=== PATIENT | male | born 1945 | race Caucasian/White ===

== ENCOUNTER 2017-09-02 11:24 | Observation (INO) | payer MEDICARE, OTHER ==
[~2017-09-02] VITALS: Ht 188 cm; Wt 81.1 kg
[2017-09-02] VITALS (16 sets, daily range): BP systolic 106–159; BP diastolic 63–84; PULSE 46–88; RESP 16; TEMP 97.6–98.3; O2SAT 94–100
[~2017-09-02 11:24] MED LIST: RED600TA PO; ST J81CH PO; TAB-TAB PO; VITA250L PO
[2017-09-02] MEDS ORDERED: MULTCAP3 PO (11:30)
[2017-09-02] MEDS ORDERED: VITA250T5 PO (11:30)
[2017-09-02] MEDS ORDERED: ASPI81TA11 PO (11:30)
[2017-09-02] MEDS ORDERED: ASPIRIN 81 MG CHEW TAB PO ONE (11:45)
[2017-09-02] MEDS ORDERED: SODIUM CHLORIDE 0.9% FLUSH 10 ML FLUSH IVF PRN (11:45)
[2017-09-02 11:51] LABS: AUTOMATED NEUTROPHIL # 4.9 TH/MM3 (1.8-7.7); BASOPHIL # 0.1 TH/MM3 (0-0.2); BASOPHIL % 0.9 % (0.0-2.0); EOSINOPHIL # 0.2 TH/MM3 (0-0.4); EOSINOPHIL % 3.3 % (0.0-4.0); HEMATOCRIT 42.2 % (39.0-51.0); HEMO FLAGS DIFF FINAL; LYMPH % 17.7 % (9.0-44.0); LYMPHOCYTE # 1.3 TH/MM3 (1.0-4.8); MEAN CELL VOLUME 92.8 FL (80.0-100.0); MEAN CORPUSCULAR HEMOGLOBIN 30.3 PG (27.0-34.0); MEAN CORPUSCULAR HGB CONC 32.7 % (32.0-36.0); MONO % 9.5 % (0.0-8.0); NEUT % 68.6 % (16.0-70.0); PLATELET COUNT 195 TH/MM3 (150-450); RED BLOOD COUNT 4.55 MIL/MM3 (4.50-5.90); RED CELL DISTRIBUTION WIDTH 14.2 % (11.6-17.2); WHITE BLOOD COUNT 7.2 TH/MM3 (4.0-11.0)
--- NOTE | 2017-09-02 11:53 | PD ---
HPI Chief Complaint: Chest Pain Time Seen by Provider: 11:31 Travel History International Travel<30 days: No Contact w/Intl Traveler<30days: No Traveled to known affect area: No History of Present Illness HPI Patient is a 72-year-old male with a history of coronary disease and a 70% lesion that was not intervened on by catheter in 2013, followed by Dr. Yao, presents emergency Department with chest pain in the middle of his chest radiation to his left shoulder coming with shortness of breath nausea and diaphoresis. Symptoms started approximately 2 hours prior to presentation and are currently resolved. Patient states she's not had a stress test or catheterization since 2013. He states his symptoms were severe better now gradually resolving. Denies any fever denies any cough denies any abdominal pain or diarrhea. Symptoms are mild currently, nearly resolved, have been lessening. Describes as heavy. PFSH Past Medical History AAA: Yes (09/2013) Arthritis: Yes (LEFT HIP) Cancer: Yes (PROSTATE 2011 48 RADIATION [place]) Cardiovascular Problems: Yes High Cholesterol: Yes Chest Pain: Yes Coronary Artery Disease: Yes Endocrine: No Genitourinary: No Immune Disorder: No Musculoskeletal: Yes Neurologic: No Psychiatric: No Reproductive: No Respiratory: No Immunizations Current: Yes Myocardial Infarction: Yes Radiation Therapy: Yes Influenza Vaccination: No Past Surgical History Cardiac Surgery: Yes (STENT ABDOMINAL AORTA) Coronary Stent: Yes (X 2) Oral Surgery: Yes (TONSILLECTOMY) Other Surgery: Yes Social History Alcohol Use: Yes (RARE) Tobacco Use: No (FORMER) Substance Use: No Allergies-Medications (Allergen,Severity, Reaction): Coded Allergies: No Known Allergies (Unverified , 09/02/17) Reported Meds & Prescriptions Reported Meds & Active Scripts Active Reported Carvedilol 3.125 Mg Tab 3.125 Mg PO BID Lisinopril 2.5 Mg Tab 2.5 Mg PO HS Brilinta (Ticagrelor) 60 Mg Tab 60 Mg PO BID Vitamin B-12 (Cyanocobalamin) 250 Mcg Tab 250 Mcg PO DAILY Multivitamins (Multiple Vitamin) 1 Cap Cap 1 Cap PO DAILY Aspirin EC (Aspirin) 81 Mg Tabdr 81 Mg PO DAILY Review of Systems Except as stated in HPI: all other systems reviewed are Neg Physical Exam Narrative GENERAL: [Well-developed well-nourished appears mildly short of breath. SKIN: Focused skin assessment warm/dry. HEAD: Atraumatic. Normocephalic. EYES: Pupils equal and round. No scleral icterus. No injection or drainage. ENT: No nasal bleeding or discharge. Mucous membranes pink and moist. NECK: Trachea midline. No JVD. CARDIOVASCULAR: Regular rate and rhythm. No murmur appreciated. No MG R, 2+ bilateral equal pulses in all 4 extremity's. RESPIRATORY: No accessory muscle use. Clear to auscultation. Breath sounds equal bilaterally. GASTROINTESTINAL: Abdomen soft, non-tender, nondistended. Hepatic and splenic margins not palpable. MUSCULOSKELETAL: No obvious deformities. No clubbing. No cyanosis. No edema. NEUROLOGICAL: Awake and alert. No obvious cranial nerve deficits. Motor grossly within normal limits. Normal speech. PSYCHIATRIC: Appropriate mood and affect; insight and judgment normal. Data Data Last Documented VS Vital Signs Date Time Temp Pulse Resp B/P (MAP) Pulse Ox O2 Delivery O2 Flow Rate FiO2 09/02/17 13:35 50 16 110/72 (85) 98 Nasal Cannula 2.00 09/02/17 11:30 98.3 Orders Orders Electrocardiogram (09/02/17 11:37) Ckmb (Isoenzyme) Profile (09/02/17 11:37) Complete Blood Count With Diff (09/02/17 11:37) Comprehensive Metabolic Panel (09/02/17 11:37) Magnesium (Mg) (09/02/17 11:37) Prothrombin Time / Inr (Pt) (09/02/17 11:37) Act Partial Throm Time (Ptt) (09/02/17 11:37) Troponin I (09/02/17 11:37) Chest, Single Ap (09/02/17 11:37) Ecg Monitoring (09/02/17 11:37) Iv Access Insert/Monitor (09/02/17 11:37) Oximetry (09/02/17 11:37) Oxygen Administration (09/02/17 11:37) Aspirin Chew (Aspirin Chew) (09/02/17 11:45) Sodium Chloride 0.9% Flush (Ns Flush) (09/02/17 11:45) Admit Order (Ed Use Only) (09/02/17 ) Consult Cardiology (09/02/17 ) Labs Laboratory Tests Test 09/02/17 11:30 White Blood Count 7.2 TH/MM3 Red Blood Count 4.55 MIL/MM3 Hemoglobin 13.8 GM/DL Hematocrit 42.2 % Mean Corpuscular Volume 92.8 FL Mean Corpuscular Hemoglobin 30.3 PG Mean Corpuscular Hemoglobin Concent 32.7 % Red Cell Distribution Width 14.2 % Platelet Count 195 TH/MM3 Mean Platelet Volume 9.5 FL Neutrophils (%) (Auto) 68.6 % Lymphocytes (%) (Auto) 17.7 % Monocytes (%) (Auto) 9.5 % Eosinophils (%) (Auto) 3.3 % Basophils (%) (Auto) 0.9 % Neutrophils # (Auto) 4.9 TH/MM3 Lymphocytes # (Auto) 1.3 TH/MM3 Monocytes # (Auto) 0.7 TH/MM3 Eosinophils # (Auto) 0.2 TH/MM3 Basophils # (Auto) 0.1 TH/MM3 CBC Comment DIFF FINAL Differential Comment Prothrombin Time 10.2 SEC Prothromb Time International Ratio 0.9 RATIO Activated Partial Thromboplast Time 26.6 SEC Blood Urea Nitrogen 23 MG/DL Creatinine 1.40 MG/DL Random Glucose 102 MG/DL Total Protein 7.3 GM/DL Albumin 3.8 GM/DL Calcium Level 9.1 MG/DL Magnesium Level 2.2 MG/DL Alkaline Phosphatase 72 U/L Aspartate Amino Transf (AST/SGOT) 18 U/L Alanine Aminotransferase (ALT/SGPT) 28 U/L Total Bilirubin 0.5 MG/DL Sodium Level 138 MEQ/L Potassium Level 4.1 MEQ/L Chloride Level 103 MEQ/L Carbon Dioxide Level 26.9 MEQ/L Anion Gap 8 MEQ/L Estimat Glomerular Filtration Rate 50 ML/MIN Total Creatine Kinase 51 U/L Troponin I LESS THAN 0.02 NG/ML [facility] Medical Decision Making Medical Screen Exam Complete: Yes Emergency Medical Condition: Yes Differential Diagnosis ACS, AMI, pneumonia, PE was considered but seems highly unlikely. Narrative Course Patient roomed emergency department, initial workup with EKG and troponin are negative. He is feeling better without intervention, has not had his aspirin yet this morning was given a dose. At this time I recommended patient come into the hospital on observation status for consideration of stress testing and he is agreeable. Patient discussed with Dr. Bocanegra requested discussed the patient with the cardiology team prior to admission. The patient was discussed with Dr. ya who is on-call for Dr. Najma ya suggested the patient should be transferred to the [facility] for his evaluation for consideration of possible stress testing versus cardiac catheterization given the history of the 70% lesion. This was conveyed to the patient and he is agreeable to this as well. Patient discussed again with Dr. Bocanegra who agrees to admit the patient. Diagnosis Primary Impression: Chest pain Qualified Codes: R07.9 - Chest pain, unspecified Admitting Information Admitting Physician Requests: Observation Condition: Stable Emanuel Arias MD Sep 02, 2017 11:52
[2017-09-02 11:59] LABS: CHLORIDE 103 MEQ/L (98-107); POTASSIUM 4.1 MEQ/L (3.5-5.1); SODIUM (NA) 138 MEQ/L (136-145)
[2017-09-02 12:03] LABS: ANION GAP 8 MEQ/L (5-15); BICARBONATE 26.9 MEQ/L (21.0-32.0); BLOOD UREA NITROGEN 23 MG/DL (7-18); MAGNESIUM 2.2 MG/DL (1.5-2.5)
[2017-09-02 12:04] LABS: APTT (PATIENT) 26.6 SEC (24.3-30.1); INTERNATIONAL NORMALIZED RATIO 0.9 RATIO; PROTHROMBIN TIME - PATIENT 10.2 SEC (9.8-11.6)
[2017-09-02 12:06] LABS: ALT (GPT) 28 U/L (12-78); AST (GOT) 18 U/L (15-37); GLOMERULAR FILTRATION RATE 50 ML/MIN (>89)
[2017-09-02 12:08] LABS: TOTAL BILIRUBIN ADULT 0.5 MG/DL (0.2-1.0)
[2017-09-02] MEDS ORDERED: TICA1TAB PO (12:10)
[2017-09-02 12:11] LABS: ALKALINE PHOSPHATASE 72 U/L (45-117)
[2017-09-02 12:14] LABS: CREATINE KINASE 51 U/L (39-308)
--- NOTE | 2017-09-02 12:26 | RADRPT ---
EXAM DATE/TIME: 09/02/2017 12:09 [place] COMPARISON: CHEST SINGLE AP, March 19, 2014, 22:21. INDICATIONS : Chest pain. MEDICAL HISTORY : Myocardial infarction. Arthritis. Hypercholesterolemia. CAD. Radiation therapy. Prostate CA. SURGICAL HISTORY : Tonsillectomy. Cardiac cath w/ stent placement. ENCOUNTER: Initial ACUITY: 1 day PAIN SCORE: 8/10 LOCATION: chest FINDINGS: A single view of the chest demonstrates the lungs to be symmetrically aerated without evidence of mas s, infiltrate or effusion. The cardiomediastinal contours are unremarkable. Osseous structures are intact. CONCLUSION: No acute disease. Jorge Ferris MD on September 02, 2017 at 12:23 Board Certified Radiologist. This report was verified electronically.
[2017-09-02] MEDS ORDERED: CARV3.12 PO (13:00)
[2017-09-02] MEDS ORDERED: LISI2.5T3 PO (13:00)
[2017-09-02] MEDS ORDERED: ONDANSETRON HCL 4 MG/2 ML VIAL IV PUSH PRN (15:15)
[2017-09-02] MEDS ORDERED: ACETAMINOPHEN 500 MG CPLT PO PRN (15:15)
[2017-09-02] MEDS ORDERED: MORPHINE SULFATE 4 MG/ML INJ IV PUSH PRN (15:15)
[2017-09-02] MEDS ORDERED: SODIUM CHLORIDE 0.9% FLUSH 10 ML FLUSH IV FLUSH PRN (15:15)
[2017-09-02] MEDS ORDERED: NITROGLYCERIN 0.4 MG SL 25 TABS/BTL SL PRN (15:15)
--- NOTE | 2017-09-02 15:21 | HHI.HP ---
[facility] Service [facility] Primary Care Physician Jaspreet Donovan M.D. Admission Diagnosis Acute Coronary Syndrome Diagnoses: (1) Unstable angina Diagnosis: Principal (2) Renal insufficiency Diagnosis: Principal (3) History of coronary artery stent placement Diagnosis: Principal Chief Complaint: chest pain Travel History International Travel<30 Days: No Contact w/Intl Traveler <30 Da: No Traveled to Known Affected Are: No History of Present Illness 72-year-old male with history of coronary artery disease with stents x 2, hyperlipidemia, AAA repair, and h/o prostate cancer presents with complaint of chest pain. The patient states that he started to have pain described as "heaviness" at 10:30 to 11 AM this morning across the middle of his chest. He states initially was a 7-8/10 and lasted for approximately half an hour then started to diminish at 11 AM and he said intermittently pain since. He states it decreased to 2/10 and now he is chest pain-free. He states he has been having chest pain in the same location for the past 2 weeks intermittently with some radiation to the back. Denies association with exertion. He states this morning he did have dizziness and diaphoresis. He states it felt similar to his [place] in 1997 although at that time he had nausea and vomiting which she did not have today. He has had some periodic mild shortness of breath. He denies any numbness or tingling in extremities and denies any pain to jaws/neck/arms. Denies any headache, lightheadedness, or visual changes. Denies any leg swelling. He denies any fevers or chills, recent cold symptoms, abdominal pain, diarrhea, constipation. Patient sees Dr. Yao. His last cardiac catheterization was in 2013. At that time he had 2 vessel disease with 60% occlusion of the LAD and 70% occlusion of the first obtuse marginal branch of the circumflex which was not amenable to stenting and patient was medically managed. Review of Systems Constitutional: COMPLAINS OF: Diaphoretic episodes, DENIES: Fever, Chills Eyes: DENIES: Blurred vision, Double Vision Ears, nose, mouth, throat: DENIES: Throat pain, Ear Pain, Running Nose Respiratory: COMPLAINS OF: Shortness of breath, DENIES: Cough Cardiovascular: COMPLAINS OF: Chest pain, DENIES: Lower Extremity Edema Gastrointestinal: DENIES: Abdominal pain, Constipation, Diarrhea, Nausea, Vomiting Genitourinary: DENIES: Hematuria, Dysuria Musculoskeletal: COMPLAINS OF: Back pain Integumentary: DENIES: Rash Neurologic: DENIES: Headache Past Family Social History Past Medical History Coronary artery disease, [place] 1997 AAA (with repair) followed by Dr. Conn Prostate cancer 2012 with 48 radiation treatments, no active cancer, followed by Dr. De Anda Mildly elevated cholesterol Denies history of hypertension Past Surgical History Coronary artery stents 2 in 1997 Abdominal aorta stent Tonsillectomy Reported Medications Reported Meds & Active Scripts Active Reported Carvedilol 3.125 Mg Tab 3.125 Mg PO BID Lisinopril 2.5 Mg Tab 2.5 Mg PO HS Brilinta (Ticagrelor) 60 Mg Tab 60 Mg PO BID Vitamin B-12 (Cyanocobalamin) 250 Mcg Tab 250 Mcg PO DAILY Multivitamins (Multiple Vitamin) 1 Cap Cap 1 Cap PO DAILY Aspirin EC (Aspirin) 81 Mg Tabdr 81 Mg PO DAILY Allergies: Coded Allergies: No Known Allergies (Unverified , 09/02/17) Family History Mother: Stroke, "heart problems". Father: of AAA at age 57 Social History Denies smoking cigarettes currently. Smoked from age [age], half pack per day. Occasional alcohol use (beer). No hard liquor. Denies illicit drug use. Physical Exam Vital Signs Vital Signs Date Time Temp Pulse Resp B/P (MAP) Pulse Ox O2 Delivery O2 Flow Rate FiO2 09/02/17 13:35 50 16 110/72 (85) 98 Nasal Cannula 2.00 09/02/17 12:35 55 16 119/79 (92) 97 Nasal Cannula 2.00 09/02/17 11:35 78 16 100 Nasal Cannula 2.00 09/02/17 11:30 16 100 Nasal Cannula 2.00 09/02/17 11:30 100 Nasal Cannula 2.00 09/02/17 11:30 98.3 88 16 144/84 (104) 100 Physical Exam GENERAL: This is a well-nourished, well-developed patient, in no apparent distress. SKIN: No rashes, ecchymoses or lesions. Warm and dry. HEAD: Atraumatic. Normocephalic. EYES: No scleral icterus. No injection or drainage. ENT: Tongue dry. NECK: Trachea midline. No lymphadenopathy. CHEST: No reproducible chest wall tenderness. CARDIOVASCULAR: Regular rate and rhythm without murmurs, gallops, or rubs. RESPIRATORY: Clear to auscultation. Breath sounds equal bilaterally. No wheezes , rales, or rhonchi. GASTROINTESTINAL: Abdomen soft, non-tender, nondistended. No guarding. MUSCULOSKELETAL: No lower extremity edema or calf pain bilaterally. NEUROLOGICAL: Awake and alert. Motor grossly within normal limits. Five out of 5 muscle strength in bilateral arms and legs. Normal speech. PSYCHIATRIC: Normal mood and affect. Laboratory Laboratory Tests Test 09/02/17 11:30 White Blood Count 7.2 Red Blood Count 4.55 Hemoglobin 13.8 Hematocrit 42.2 Mean Corpuscular Volume 92.8 Mean Corpuscular Hemoglobin 30.3 Mean Corpuscular Hemoglobin Concent 32.7 Red Cell Distribution Width 14.2 Platelet Count 195 Mean Platelet Volume 9.5 Neutrophils (%) (Auto) 68.6 Lymphocytes (%) (Auto) 17.7 Monocytes (%) (Auto) 9.5 Eosinophils (%) (Auto) 3.3 Basophils (%) (Auto) 0.9 Neutrophils # (Auto) 4.9 Lymphocytes # (Auto) 1.3 Monocytes # (Auto) 0.7 Eosinophils # (Auto) 0.2 Basophils # (Auto) 0.1 CBC Comment DIFF FINAL Differential Comment Prothrombin Time 10.2 Prothromb Time International Ratio 0.9 Activated Partial Thromboplast Time 26.6 Blood Urea Nitrogen 23 Creatinine 1.40 Random Glucose 102 Total Protein 7.3 Albumin 3.8 Calcium Level 9.1 Magnesium Level 2.2 Alkaline Phosphatase 72 Aspartate Amino Transf (AST/SGOT) 18 Alanine Aminotransferase (ALT/SGPT) 28 Total Bilirubin 0.5 Sodium Level 138 Potassium Level 4.1 Chloride Level 103 Carbon Dioxide Level 26.9 Anion Gap 8 Estimat Glomerular Filtration Rate 50 Total Creatine Kinase 51 Troponin I LESS THAN 0.02 Result Diagram: 09/02/17 1130 09/02/17 1130 Imaging Last Impressions Chest X-Ray 09/02/17 1137 Signed Impressions: Service Date/Time: Saturday, September 02, 2017 12:09 - CONCLUSION: No acute disease. Jorge Ferris MD Caprindonna VTE Risk Assessment Caprini VTE Risk Assessment: Mod/High Risk (score >= 2) Caprini Risk Assessment Model Point Value = 1 Point Value = 2 Point Value = 3 Point Value = 5 Age 41-60 Minor surgery BMI > 25 kg/m2 Swollen legs Varicose veins or History of unexplained or recurrent spontaneous Oral contraceptives or hormone replacement Sepsis (< 1 month) Serious lung disease, including pneumonia (< 1 month) Abnormal pulmonary function Acute myocardial infarction Congestive heart failure (< 1 month) History of inflammatory bowel disease Medical patient at bed rest Age 61-74 Arthroscopic surgery Major open surgery (> 45 min) Laparoscopic surgery (> 45 min) Malignancy Confined to bed (> 72 hours) Immobilizing plaster cast Central venous access Age >= 75 History of VTE Family history of VTE Factor V Leiden Prothrombin [id number] Lupus anticoagulant Anticardiolipin antibodies Elevated serum homocysteine Heparin-induced thrombocytopenia Other congenital or acquired thrombophilia Stroke (< 1 month) Elective arthroplasty Hip, pelvis, or leg fracture Acute spinal cord injury (< 1 month) Prophylaxis Regimen Total Risk Factor Score Risk Level Prophylaxis Regimen 0-1 Low Early ambulation 2 Moderate Order ONE of the following: *Sequential Compression Device (SCD) *Heparin 5000 units SQ BID 3-4 Higher Order ONE of the following medications: *Heparin 5000 units SQ TID *Enoxaparin/Lovenox 40 mg SQ daily (WT < 150 kg, CrCl > 30 mL/min) *Enoxaparin/Lovenox 30 mg SQ daily (WT < 150 kg, CrCl > 10-29 mL/min) *Enoxaparin/Lovenox 30 mg SQ BID (WT < 150 kg, CrCl > 30 mL/min) AND/OR *Sequential Compression Device (SCD) 5 or more Highest Order ONE of the following medications: *Heparin 5000 units SQ TID (Preferred with Epidurals) *Enoxaparin/Lovenox 40 mg SQ daily (WT < 150 kg, CrCl > 30 mL/min) *Enoxaparin/Lovenox 30 mg SQ daily (WT < 150 kg, CrCl > 10-29 mL/min) *Enoxaparin/Lovenox 30 mg SQ BID (WT < 150 kg, CrCl > 30 mL/min) AND *Sequential Compression Device (SCD) Assessment and Plan Assessment and Plan 72-year-old male with: Unstable angina: Patient with history of coronary artery disease. Chest pain for the past 2 weeks across the middle of the chest intermittently sometimes radiating to the back. Today with chest heaviness, dizziness, diaphoresis, shortness of breath, pain similar to prior AK. EKG personally interpreted with sinus rhythm. T-wave inversion in V3. Troponin less than 0.02. Chest x-ray personally interpreted and normal. Patient received 325 mg of aspirin in the ED. -Patient has known coronary artery lesions that were unable to be stented in 2013. ED physician has spoken with Dr. Jacques, covering assistant store manager trainee, who requests patient be transferred to the main for evaluation. -Serial EKGs and enzymes every 6 hours -Patient has no active chest pain, but will order nitroglycerin SL and morphine as needed. If pain does return and is persistent, can apply scheduled nitroglycerin ointment instead. -Will continue home Brilinta and 81 mg aspirin daily -Telemetry -Heart healthy diet Renal insufficiency: BUN/creatinine 23/1.4 with GFR 50. Last labs are from 2013 , and although previous labs are limited, patient appears to have stage III chronic kidney disease with questionable PERFECTO. -Administer 1 L IV NS @ 84 mL/hr -Repeat am BMP CAD: Continue Brilinta, carvedilol, lisinopril. BP stable. HLD: Patient states he last his cholesterol checked 6 months to one year ago and it was mildly elevated. He is not on a statin. He states he was on Lipitor in the past but it caused too much joint pain. -Repeat lipid profile in the morning DVT prophylaxis: SCDs. Discussed Condition With patient, Marzena Barr Sep 02, 2017 15:21
[2017-09-02] MEDS ORDERED: SODIUM CHLOR 0.9% 1000 ML INJ 1,000 ML IV SCH ×2 (16:00→21:30)
[2017-09-02 18:17] LABS: CREATINE KINASE 42 U/L (39-308)
[2017-09-02] MEDS: SODIUM CHLORIDE 0.9% FLUSH 10 ML FLUSH IV FLUSH SCH (21:00)
[2017-09-02] MEDS: CARVEDILOL 3.125 MG TAB PO SCH (21:00)
[2017-09-02] MEDS: LISINOPRIL 5 MG TAB PO SCH (21:33)
[2017-09-02] MEDS: FAMOTIDINE 20 MG TAB PO SCH (21:33)
[2017-09-02] MEDS: TICAGRELOR 60 MG TAB PO SCH (22:20)
[2017-09-03] VITALS (23 sets, daily range): BP systolic 111–136; BP diastolic 64–77; PULSE 48–68; RESP 16–18; TEMP 97.1–98.4; O2SAT 95–98
[2017-09-03 03:00] LABS: HDL CHOLESTEROL 47.6 MG/DL (40.0-60.0); LDL CHOLESTEROL 106 MG/DL (0-99)
[2017-09-03 03:01] LABS: CREATINE KINASE 37 U/L (39-308)
[2017-09-03 03:04] LABS: BLOOD UREA NITROGEN 25 MG/DL (7-18); CHLORIDE 110 MEQ/L (98-107); GLOMERULAR FILTRATION RATE 54 ML/MIN (>89); POTASSIUM 4.1 MEQ/L (3.5-5.1); SODIUM (NA) 142 MEQ/L (136-145)
[2017-09-03 03:05] LABS: ANION GAP 6 MEQ/L (5-15); BICARBONATE 26.3 MEQ/L (21.0-32.0)
--- NOTE | 2017-09-03 05:08 | EKG ---
Date Performed: 09/02/2017 Time Performed: 17:30:23 PTAGE: 72 years EKG: SINUS BRADYCARDIA WITH FIRST DEGREE AV BLOCK LOW QRS VOLTAGE IN PRECORDIAL LEADS POSSIBLE R IGHT VENTRICULAR CONDUCTION DELAY SEPTAL MYOCARDIAL INFARCTION INFERIOR MYOCARDIAL INFARCTION ST ELEV ATION, CONSIDER ANTERIOR INJURY ACUTE GA PREVIOUS TRACING : 09/02/2017 11.28 DOCTOR: Que Estevez Interpretating Date/Time 09/03/2017 05:04:27
--- NOTE | 2017-09-03 05:21 | EKG ---
Date Performed: 09/02/2017 Time Performed: 11:28:30 PTAGE: 72 years EKG: Sinus rhythm POSSIBLE RIGHT VENTRICULAR CONDUCTION DELAY BORDERLINE ECG PREVIOUS TRACING : 03/20/2014 20.23 DOCTOR: Que Estevez Interpretating Date/Time 09/03/2017 05:14:57
[2017-09-03] MEDS: CARVEDILOL 3.125 MG TAB PO SCH ×2 (09:53→21:08)
[2017-09-03] MEDS: CYANOCOBALAMIN 100 MCG TAB PO SCH (09:53)
[2017-09-03] MEDS: FAMOTIDINE 20 MG TAB PO SCH ×2 (09:53→21:07)
[2017-09-03] MEDS: MULTIVITAMIN TAB PO SCH (09:54)
[2017-09-03] MEDS: TICAGRELOR 60 MG TAB PO SCH ×2 (09:54→21:09)
[2017-09-03] MEDS: ASPIRIN EC 81 MG TABEC PO SCH (09:54)
[2017-09-03] MEDS: SODIUM CHLORIDE 0.9% FLUSH 10 ML FLUSH IV FLUSH SCH ×2 (09:55→21:09)
--- NOTE | 2017-09-03 11:44 | MB ---
cc: ELIANE BAI DATE OF CONSULTATION: 09/03/2017 HISTORY OF PRESENT ILLNESS Mr. Castanon is a 72-year-old white male with a history of coronary artery disease, coronary stenting, dyslipidemia, abdominal aortic aneurysm repair who presented with substernal chest discomfort which was severe and was similar to his previous angina. He also had shortness of breath. His last cardiac catheterization by Dr. Yao in 02/2014 revealed 60% stenosis in the distal LAD distally to a second diagonal branch, patent stent in the proximal LAD with 90% stenosis of a septal branch, 70% stenosis of OM1, 60% stenosis of the first marginal branch and patent right coronary artery. PAST MEDICAL HISTORY Past medical history is positive for - 1. Coronary artery disease. 2. Myocardial infarction in with placement of LAD stent. 3. Abdominal aortic aneurysm repair by Dr. Conn. 4. Prostate cancer treated with radiation. 5. Dyslipidemia. 6. Hypertension. 7. Tonsillectomy. MEDICATIONS Medications include - 1. Baby Aspirin. 2. Multivitamin. 3. Vitamin B12. 4. Brilinta 60 mg twice a day. 5. Lisinopril 2.5 mg a day. 6. Carvedilol 3.125 mg twice a day. ALLERGIES NONE. SOCIAL HISTORY The patient does not smoke. He used to smoke until the age of 49. He drinks beer occasionally. FAMILY HISTORY Positive for heart disease. REVIEW OF SYSTEMS Otherwise negative. PHYSICAL EXAMINATION VITAL SIGNS: Blood pressure 111/64, pulse 57 and regular. HEAD, EYES, EARS, NOSE AND THROAT: Negative. NECK: 2+ carotid upstrokes. No bruits. LUNGS: Clear. HEART: Regular with no murmur, gallop or rub. ABDOMEN: Soft. No bruits. EXTREMITIES: Without edema. 2+ distal pulses. NEUROLOGIC: Exam is grossly nonfocal. EKG was reviewed and showed normal sinus rhythm, normal axis and intervals, no acute changes and R-wave progression of pericardial leads. LABORATORY DATA Hemoglobin 13.8, potassium 4.1, creatinine 1.40 and 1.31. Troponin negative. CK 51, 42 and 37. LDL 106, HDL 48. DIAGNOSES 1. Unstable angina. 2. Multivessel coronary artery disease. 3. History of myocardial infarction and LAD stenting. 4. Hypertension. 5. Dyslipidemia. 6. History of abdominal aortic aneurysm stent graft repair. DISPOSITION Mr. Castanon will undergo cardiac catheterization and coronary intervention if necessary. He understands the risk and benefits and wishes to proceed. He will followup with Dr. Yao, his primary furniture polisher, in his office after discharge. MD DARSHAN Velasco/BJF /10:59 AM /11:13 AM
--- NOTE | 2017-09-03 13:24 | HHI.PR ---
Subjective Remarks This is a pleasant 72 y/o Male with CAD status post PCI and stent placement x 2 , Hyperlipidemia, AAA repair, history of prostate cancer, who came to ER with Chest pain, dizziness and diaphoresis. Patient sees Dr. Yao. His last cardiac catheterization was in 2013. At that time he had 2 vessel disease with 60% occlusion of the LAD and 70% occlusion of the first obtuse marginal branch of the circumflex which was not amenable to stenting and patient was medically managed. 09/03: Seen by banking specialist Doctor Sary Jacques and recommended to PCI will go at this moment, he is with his in the room, no nausea, vomit or diarrhea. Objective Vital Signs Date Time Temp Pulse Resp B/P (MAP) Pulse Ox O2 Delivery O2 Flow Rate FiO2 09/03/17 06:02 57 09/03/17 05:02 48 09/03/17 04:00 48 09/03/17 03:35 97.8 54 111/64 (80) 96 09/03/17 03:00 55 09/03/17 02:00 52 09/03/17 01:00 52 09/03/17 00:00 50 09/02/17 23:00 Non-Rebreather 09/02/17 23:00 58 09/02/17 22:00 54 09/02/17 21:00 56 09/02/17 20:30 97.6 46 159/70 (99) 97 09/02/17 19:45 09/02/17 19:15 94 21 09/02/17 19:08 52 16 119/67 (84) 100 Nasal Cannula 2.00 09/02/17 19:00 58 09/02/17 18:35 52 16 126/69 (88) 97 Nasal Cannula 2.00 09/02/17 17:35 54 16 140/76 (97) 99 Nasal Cannula 2.00 09/02/17 17:01 98 Nasal Cannula 2.00 09/02/17 16:35 64 16 115/74 (88) 98 Nasal Cannula 2.00 09/02/17 15:35 50 16 106/63 (77) 98 Nasal Cannula 2.00 09/02/17 14:35 50 16 119/72 (88) 98 Nasal Cannula 2.00 09/02/17 13:35 50 16 110/72 (85) 98 Nasal Cannula 2.00 I/O 09/02/17 09/02/17 09/02/17 09/03/17 09/03/17 09/03/17 07:00 15:00 23:00 07:00 15:00 23:00 Intake Total 120 ml Output Total 400 ml Balance -400 ml 120 ml Intake Oral 120 ml Output Urine Total 400 ml # Voids 2 Result Diagram: 09/02/17 1130 09/03/17 0223 Imaging Last Impressions Chest X-Ray 09/02/171136 Signed Impressions: Service Date/Time: Saturday, September 02, 2017 12:09 - CONCLUSION: No acute disease. Jorge Ferris MD Procedures None Other Results Laboratory Tests Test 09/02/17 11:30 09/03/17 02:23 White Blood Count 7.2 TH/MM3 Red Blood Count 4.55 MIL/MM3 Hemoglobin 13.8 GM/DL Hematocrit 42.2 % Mean Corpuscular Volume 92.8 FL Mean Corpuscular Hemoglobin 30.3 PG Mean Corpuscular Hemoglobin Concent 32.7 % Red Cell Distribution Width 14.2 % Platelet Count 195 TH/MM3 Mean Platelet Volume 9.5 FL Neutrophils (%) (Auto) 68.6 % Lymphocytes (%) (Auto) 17.7 % Monocytes (%) (Auto) 9.5 % Eosinophils (%) (Auto) 3.3 % Basophils (%) (Auto) 0.9 % Neutrophils # (Auto) 4.9 TH/MM3 Lymphocytes # (Auto) 1.3 TH/MM3 Monocytes # (Auto) 0.7 TH/MM3 Eosinophils # (Auto) 0.2 TH/MM3 Basophils # (Auto) 0.1 TH/MM3 CBC Comment DIFF FINAL Differential Comment Prothrombin Time 10.2 SEC Prothromb Time International Ratio 0.9 RATIO Activated Partial Thromboplast Time 26.6 SEC Blood Urea Nitrogen 23 MG/DL 25 MG/DL Creatinine 1.40 MG/DL 1.31 MG/DL Random Glucose 102 MG/DL 111 MG/DL Total Protein 7.3 GM/DL Albumin 3.8 GM/DL Calcium Level 9.1 MG/DL 8.2 MG/DL Magnesium Level 2.2 MG/DL Alkaline Phosphatase 72 U/L Aspartate Amino Transf (AST/SGOT) 18 U/L Alanine Aminotransferase (ALT/SGPT) 28 U/L Total Bilirubin 0.5 MG/DL Sodium Level 138 MEQ/L 142 MEQ/L Potassium Level 4.1 MEQ/L 4.1 MEQ/L Chloride Level 103 MEQ/L 110 MEQ/L Carbon Dioxide Level 26.9 MEQ/L 26.3 MEQ/L Anion Gap 6 MEQ/L Estimat Glomerular Filtration Rate 54 ML/MIN Total Creatine Kinase 37 U/L Troponin I LESS THAN 0.02 NG/ML Triglycerides Level 202 MG/DL Cholesterol Level 194 MG/DL LDL Cholesterol 106 MG/DL HDL Cholesterol 47.6 MG/DL Cholesterol/HDL Ratio 4.07 RATIO Objective Remarks GENERAL: This is a well-nourished, well-developed patient, in no apparent distress. SKIN: No rashes, ecchymoses or lesions. Warm and dry. HEAD: Atraumatic. Normocephalic. EYES: No scleral icterus. No injection or drainage. ENT: Tongue dry. NECK: Trachea midline. No lymphadenopathy. CHEST: No reproducible chest wall tenderness. CARDIOVASCULAR: Regular rate and rhythm without murmurs, gallops, or rubs. RESPIRATORY: Clear to auscultation. Breath sounds equal bilaterally. No wheezes , rales, or rhonchi. GASTROINTESTINAL: Abdomen soft, non-tender, nondistended. No guarding. MUSCULOSKELETAL: No lower extremity edema or calf pain bilaterally. NEUROLOGICAL: Awake and alert. Motor grossly within normal limits. Five out of 5 muscle strength in bilateral arms and legs. Normal speech. PSYCHIATRIC: Normal mood and affect. Medications and IVs Current Medications Medications (Trade) Dose Ordered Sig/[place] Route Start Time Stop Time Status Last Admin (NS Flush) 2 ml UNSCH PRN IVF 09/02/17 11:45 (NS Flush) 2 ml UNSCH PRN IV FLUSH 09/02/17 15:15 (NS Flush) 2 ml BID IV FLUSH 09/02/17 21:00 09/03/17 09:55 (Tylenol) 500 mg Q4H PRN PO 09/02/17 15:15 (Morphine Inj) 2 mg Q4H PRN IV PUSH 09/02/17 15:15 (Zofran Inj) 4 mg Q6H PRN IV PUSH 09/02/17 15:15 (Pepcid) 20 mg BID PO 09/02/17 21:00 09/03/17 09:53 (Nitrostat Sl) 0.4 mg Q5M PRN SL 09/02/17 15:15 (Ecotrin Ec) 81 mg DAILY PO 09/03/17 09:00 09/03/17 09:54 (Coreg) 3.125 mg BID PO 09/02/17 21:00 09/03/17 09:53 (Vitamin B12) 250 mcg DAILY PO 09/03/17 09:00 09/03/17 09:53 (Brilinta) 60 mg BID PO 09/02/17 21:00 09/03/17 09:54 (Prinivil) 2.5 mg HS PO 09/02/17 21:00 09/02/17 21:33 (Theragran) 1 tab DAILY PO 09/03/17 09:00 09/03/17 09:54 Sodium Chloride 1,000 ml @ 75 mls/hr [id number] IV 09/02/17 21:30 09/02/17 21:33 A/P Assessment and Plan Unstable angina: Patient with history of coronary artery disease. Chest pain for the past 2 weeks across the middle of the chest intermittently sometimes radiating to the back. Today with chest heaviness, dizziness, diaphoresis, shortness of breath, pain similar to prior [place]. EKG personally interpreted with sinus rhythm. T-wave inversion in V3. Troponin less than 0.02. Chest x-ray personally interpreted and normal. Patient received 325 mg of aspirin in the ED. -Patient has known coronary artery lesions that were unable to be stented in 2013. ED physician has spoken with Dr. Jacques, covering race relations professor, who requests patient be transferred to the [facility] for evaluation. -Serial EKGs and enzymes every 6 hours -Patient has no active chest pain, but will order nitroglycerin SL and morphine as needed. If pain does return and is persistent, can apply scheduled nitroglycerin ointment instead. -Will continue home Brilinta and 81 mg aspirin daily -Telemetry -Heart healthy diet Patient going to Cardiac Cath at this time. Renal insufficiency: BUN/creatinine 23/1.4 with GFR 50. Last labs are from 2013 , and although previous labs are limited, patient appears to have stage III chronic kidney disease with questionable PERFECTO. -Administer 1 L IV NS @ 84 mL/hr -Repeat am BMP CAD: Continue Brilinta, carvedilol, lisinopril. BP stable. HLD: Needs to be on high intensity statin management started on Atorvastatin 80 mg daily. DVT prophylaxis: SCDs. Discharge Planning Once cleared by banking specialist. Nathaniel Sy MD Sep 03, 2017 13:24
[2017-09-03] MEDS ORDERED: IOHEXOL 350 MG/ML 50 ML BTL (for Cath Lab) OTHER ONE (13:55)
[2017-09-03] MEDS ORDERED: IOHEXOL 350 MG/ML 100 ML BTL (for Cath Lab) OTHER ONE (13:55)
[2017-09-03] MEDS ORDERED: HEPARIN-NS/PF INJ 1,000 ML ONE (14:04)
[2017-09-03] MEDS ORDERED: SODIUM CHLORID 0.9% 500 ML INJ 500 ML ONE (14:04)
[2017-09-03] MEDS ORDERED: MIDAZOLAM HCL 2 MG/2 ML VIAL ONE ×3 (14:04→15:12)
--- NOTE | 2017-09-03 14:24 | EKG ---
Date Performed: 09/02/2017 Time Performed: 23:38:30 PTAGE: 72 years EKG: Sinus bradycardia with 1st degree A-V block Possible faulty V2 - omitted from analysis Infe rior infarct - age undetermined Abnormal ECG PREVIOUS TRACING : 09/02/2017 17.30 DOCTOR: Que Estevez Interpretating Date/Time 09/03/2017 14:17:23
[2017-09-03] MEDS ORDERED: HEPARIN SODIUM - IV 10,000 UNITS/10 ML VIAL ONE (14:50)
[2017-09-03] MEDS ORDERED: NITROGLYCERIN INJ 5 ML ONE (14:50)
[2017-09-03] MEDS ORDERED: TICAGRELOR 90 MG TAB PO ONE (15:37)
--- NOTE | 2017-09-03 15:54 | CATHPROC ---
uMentioned HIS Report Study Information Study Number Admission Scheduled Start Study Start [id number] Sep 02 2017 2:15PM 09/03/2017 Sep 03 2017 1:55PM [place] Service Cardiac Catheterization Admit Source Facility Department Emergency department [facility] - Backfiller Physician and Clinical Staff Initial Sary Pham Certified Endoscopy Technician Zoe Carmona,RN Certified Endoscopy Technician Nik Miles,KAYLENE Recorder Hyacinth Quevedo,OLMAN TECH2 Scrub Hermila Powell,RT(R) Procedures Performed Procedure Location (Site) Vessel Name Angiogram LV LV Ventricle Coronary Angiograms LCA Left Coronary Coronary Angiograms RCA Right Coronary Drug Eluting Inflatio LAD Prox Left Coronary PTCA LAD Prox Left Coronary Wire insertion Fem Art (right) Femoral Art Equipment Time Change Analyst Description Size Mfg Part Number Used/Scraped WIRE, BALANCE MIDDLEWEIGHT [id number] 14:51 [employer] 190CM Used 190CM ([facility]) *[id number] TRANSDUCER, TRUWAVE [id number] 14:27 GIFFORD [employer] * Used W/STOCKCOCK *[id number] 15:16 [employer] BALLOON, 2.0 8MM EMERGE MR 2.0 8MM Used *[id number] [id number] *[id number] 534-520T *[id number] [id number] *[id number] [id number] *[id number] *[id number] [id number] 15:33 [facility]IG/[facility] [employer] ANGIOSEAL, FR6 VIP FR 6 Used *[id number] 14:27 [employer] PACK, CCL CUSTOM * Used *[id number] 14:27 Network PACER PEN, SKIN DUAL W/ RULER * Used *[id number] 15:25 MEDTRONIC STENT, 3.0 12MM SANDEEP 3.0 12MM Used *[id number] 15:18 [employer] MEDICAL 30 DONN INDEFLATOR Used *[id number] 14:52 [employer] MEDICAL SHEATH, FR6.5 PRELUDE 11CM FR 6.5 038ACT Used *[id number] 14:27 [employer] WIRE, 3MMJ .035 180CM 180CM Used *[id number] PROBE COVER, STERILE [id number] 14:27 FOLUP * Used ULTRASOUND W/ GEL *[id number] 14:27 NAMIC MANIFOLD, 4 PORT * Used *[id number] 14:27 NAMIC TUBING, HIGH PRESSURE 48" 48" Used *[id number] 14:43 [employer]COMED OMNIPAQUE, 300 MG, 50ML 50ML [id number] Used 14:27 [employer]COMED OMNIPAQUE, 350 MG, 150ML 150ML [id number] Used [id number] 14:27 SHAH MEDICAL BLANKET,WARM AIR CCL * Used *[id number] 14:27 TERUMO MEDICAL SHEATH, FR5 TERUMO (10CM) FR 5 Used *[id number] Equipment Model, Serial, Lot Number and Expiration Data Description Model Number Serial Number Lot Number Expiration Date BALLOON, 2.0 8MM EMERGE MR [id number] 03-03-2020 STENT, 3.0 12MM SANDEEP [id number] 04-15-2019 History: Current Medications Medication Dosage/Unit Route Frequency Last Date/Time Taken ASA CARVEDILOL LISINOPRIL BRILINTA History: Allergies Allergy Reaction No Known Allergies History: Risk Factors Family History of Hypertension Dyslipidemia Previous IN Previous Heart Failure Premature CAD Yes Yes Yes Yes No Prior Valve Prior PCI Prior PCIDate Prior CABG Surgery No Yes 11/28/1997 No Cerebrovascular Peripheral Artery Chronic Lung On Dialysis Diabetes Disease Disease Disease No No No No No History: Symptoms/Diagnosis Selection Items Chest pain SOB History: Stress Tests Stress or Imaging Studies Performed No History: Other Disease Selection Items Cancer History: Other Current Smoker Method Quit Packs a Day Years Used Pack Years No Cigarettes 20 Years Ago 1 25 25 Labs Hgb (g/dl) Hct (%) WBC (l/cumm) Platelets (thousands) 11.60-17.00 35.00-51.00 4.00-11.00 150.00-450.00 13.8 42.2 7.2 195 Glucose (mg/dl) BUN (mg/dl) Creatinine (mg/dl) BUN:Creatinine (1:x) 74.00-106.00 7.00-18.00 0.50-1.30 10.00-20.00 111 25 1.3 19.2 Na (meq/l) K (meq/l) Cl (meq/l) CO2 (mmol/L) Ca (mg/dl) 136.00-145.00 3.50-5.10 98.00-107.00 21.00-32.00 8.50-10.10 142 4.1 110 26.3 8.2 PT (sec) PTT (sec) INR (PTT:PT) 9.80-11.60 24.30-30.10 0.90-1.10 10.2 26.6 0.9 Troponin I (ng/ml) CPK (u/l) CPK-MB (ng/ML) 0.02-0.05 26.00-308.00 0.50-3.60 0.02 37 Not Drawn Medication Medication Total Dose (Bolus/Oral) Medication Total Dosage/Unit 1% XYLOCAINE 20 mL BRILINTA 90 mg FENTANYL 125 mcg HEPARIN 6000 units NTG (IC) 200 mcg VERSED 5 mg Medications (Bolus/Oral) Medication Time Given Dosage/Unit Administered By Reason VERSED 09/03/2017 2:28:56 PM 2 mg Adamy, Zoe 2 mg VERSED given in lab by Zoe Carmona RN in Right Antecubital via Peripheral IV. Ordered by Sary Yusuf. FENTANYL 09/03/2017 2:29:21 PM 50 mcg Adamy, Zoe 50 mcg FENTANYL given in lab by Zoe Carmona RN via Peripheral IV. Ordered by Sary Jacques. 1% XYLOCAINE 09/03/2017 2:39:39 PM 20 mL Sary Jacques 20 mL 1% XYLOCAINE given in lab by Sary Jacques in Right Groin via Subcutaneous. VERSED 09/03/2017 2:39:44 PM 1 mg Adamy, Zoe 1 mg VERSED given in lab by Zoe Carmona RN in Right Antecubital via Peripheral IV. Ordered by Sary Yusuf. FENTANYL 09/03/2017 2:40:15 PM 25 mcg Adamy, Zoe 25 mcg FENTANYL given in lab by Zoe Carmona RN in Right Antecubital via Peripheral IV. Ordered b y Sary Jacques. HEPARIN 09/03/2017 2:55:45 PM 6000 units Mathew Zoe 6000 units HEPARIN given in lab by Zoe Carmona, KAYLENE in Right Antecubital via Peripheral IV. Ordere d by Sary Jacques. NTG (IC) 09/03/2017 3:01:43 PM 100 mcg Sary Jacques 100 mcg NTG (IC) given in lab by Sary Jacques via Intra-coronary. Ordered by Sary Jacques. VERSED 09/03/2017 3:11:18 PM 1 mg Adamy, Zoe 1 mg VERSED given in lab by Zoe Carmona RN in Right Antecubital via Peripheral IV. Ordered by Sary Yusuf. FENTANYL 09/03/2017 3:12:28 PM 25 mcg Adamy, Zoe 25 mcg FENTANYL given in lab by Zoe Carmona RN in Right Antecubital via Peripheral IV. Ordered b y Sary Jacques. VERSED 09/03/2017 3:14:38 PM 1 mg Adamy, Zoe 1 mg VERSED given in lab by Zoe Carmona RN in Right Antecubital via Peripheral IV. Ordered by Sary Yusuf. FENTANYL 09/03/2017 3:15:47 PM 25 mcg Adamy, Zoe 25 mcg FENTANYL given in lab by Zoe Carmona RN in Right Antecubital via Peripheral IV. Ordered b y Sary Jacques. NTG (IC) 09/03/2017 3:22:43 PM 100 mcg Sary Jcaques 100 mcg NTG (IC) given in lab by Sary Jacques via Intra-coronary. Ordered by Sary Jacques. BRILINTA 09/03/2017 3:42:10 PM 90 mg Tahiry, Zoe 90 mg BRILINTA given in lab by Zoe Carmona RN via Oral. Ordered by Sary Jacques. Medication (Drip) Medication Time Given Dosage/Unit Concentration/Unit Diluent (ml) Solution IV Solutions 09/03/2017 2:07:10 PM 0 mL (IV) 500 NaCl .9 IV Solutions given in lab by Zoe Carmona RN in Right Antecubital via Peripheral IV. Pump/Drip Fl ow = 20 ml/hr using NaCl .9. Initial Case Assessment Cardiovascular HR Rhythm NIBP Chest Pain 55 sb 157/86 0 Circulatory - Right Pulses Dorsalis Pedis Femoral 2 2 Scale (0,1,2,3,4,d) Circulatory - Left Pulses Dorsalis Pedis Femoral 2 2 Scale (0,1,2,3,4,d) Neurological State Oriented to time-place- Alert Moves all extremities person Respiration - General Respiration Rate SpO2 (%) (B/min) 14 97 Final Case Assessment Cardiovascular HR Rhythm NIBP Chest Pain 58 SB 129/79 0 Circulatory - Right Pulses Dorsalis Pedis Femoral 2 2 Scale (0,1,2,3,4,d) Circulatory - Left Pulses Dorsalis Pedis Femoral 2 2 Scale (0,1,2,3,4,d) Neurological State Oriented to time-place- Alert Moves all extremities person Respiration - General Respiration Rate SpO2 (%) (B/min) 14 98 Chronological Log Time Study Chronological Log 13:59:10 Patient arrived via Bed. 13:59:11 Patient Name, D.O.B, / Armband Verified By R.N. 13:59:12 Consent signed by the physician and the patient and verified by the Backfiller staff. 13:59:13 Pre-op and post- op instructions given; patient acknowledges understanding of instructions. 13:59:14 Verbal Stimulation=2 Physical Stimulation=2 Airway=2 Respiration=2 TOTAL=8. (0=absent, 1=li mited, 2=present) Vitals capture started with the following parameters, Patient=Adult, Interval=3 min, Initial Pr gswbxf=031 mmHg, 14:02:09 Deflation Rate=5 mmHg, Cuff placed on Left Ankle 14:03:32 HR=52 bpm, KJDJ=425/89 mmhg, SpO2=97.0 %, Resp=17 B/min 14:05:52 HR=67 bpm, BHBW=462/86 mmhg, SpO2=98.0 %, Resp=15 B/min 14:06:08 Presedation assessment performed by Backfiller RN. 14:06:14 Patient has been NPO for More than 6Hrs. 14:06:15 Skin Breakdown-none 14:06:32 Evans Prominences Protected 14:06:34 A # 20 IV was noted in the Antecubital (right). Grade = patent IV Solutions given in lab by Zoe Carmona, RN in Right Antecubital via Peripheral IV. Pump/D rip Flow = 20 ml/hr 14:07:10 using NaCl .9. 14:07:40 History and physical on the chart or being dictated. Assessment: Initial Case, HR=55 BPM, Rhythm=sb, AIWK=169/86 mmhg, Chest Pain=0 Right Pulses: [place]in Ped=2, Femoral=2 14:07:41 Left Pulses: [place]in Ped=2, Femoral=2 Neurological: State=Alert, Ox3, MATHUR Respiration: Resp=14 B/min, SpO2=97 % 14:08:17 Reference ECG taken 14:08:50 HR=53 bpm, RVMM=588/84 mmhg, SpO2=98.0 %, Resp=17 B/min 14:12:14 Bilateral groins prepped with 2% chlorhexidine, and draped after a 3 minute waiting time. 14:12:31 HR=55 bpm, KFRZ=615/87 mmhg, SpO2=96.0 %, Resp=14 B/min 14:14:46 HR=50 bpm, BIOL=300/83 mmhg, SpO2=97.0 %, Resp=13 B/min 14:17:50 HR=54 bpm, SZEC=301/84 mmhg, SpO2=98.0 %, Resp=17 B/min 14:19:39 Pressure channel 1 zeroed. 14:20:49 HR=57 bpm, SNKN=137/80 mmhg, SpO2=97 %, Resp=19 B/min 14:23:51 HR=53 bpm, VFET=565/82 mmhg, SpO2=98.0 %, Resp=18 B/min 14:25:08 MD paged 14:26:53 HR=52 bpm, RXCQ=154/75 mmhg, SpO2=99.0 %, Resp=16 B/min 14:28:56 2 mg VERSED given in lab by Zoe Carmona RN in Right Antecubital via Peripheral IV. Ord ered by Sary Jacques. 14:29:21 50 mcg FENTANYL given in lab by Zoe Carmona, KAYLENE via Peripheral IV. Ordered by Sary Jacques. 14:29:31 MD arrived. 14:29:49 HR=65 bpm, UPZB=431/81 mmhg, EeV0=383.0 %, Resp=19 B/min 14:32:47 HR=60 bpm, CGNG=201/73 mmhg, SpO2=96.0 %, Resp=11 B/min 14:35:50 HR=55 bpm, KCDI=898/71 mmhg, SpO2=97.0 %, Resp=20 B/min 14:38:44 HR=61 bpm, RCTL=023/76 mmhg, SpO2=98.0 %, Resp=20 B/min Time Out. Correct patient, correct procedure, correct physician, power injector loaded, or not loaded with contrast with 14:38:45 surgical team present. Time Out Concurred by MD and individual staff in procedure. 14:39:27 Case Start 14:39:39 20 mL 1% XYLOCAINE given in lab by Sary Jacques in Right Groin via Subcutaneous. 14:39:44 1 mg VERSED given in lab by Zoe Carmona, KAYLENE in Right Antecubital via Peripheral IV. Ord ered by Sary Jacques. 25 mcg FENTANYL given in lab by Zoe Carmona, KAYLENE in Right Antecubital via Peripheral IV. Ord ered by Sawyer, 14:40:15 Sary. 14:41:28 Access site was Right Femoral Artery. 14:41:38 A SHEATH, FR5 TERUMO (10CM) FR 5 was advanced into the Fem Art (right) using the Percutaneo us technique. 14:41:48 An injection in the Fem Art (right) was made through the SHEATH, FR5 TERUMO (10CM) FR 5. 14:41:50 HR=52 bpm, NBHP=384/66 mmhg, SpO2=98.0 %, Resp=12 B/min A PIGTAIL ANG. INFINITI CATHETER FR 5 was advanced over a wire. OMNIPAQUE, 300 MG, 50ML 50ML wa s used for 14:42:46 injections. 14:44:48 HR=60 bpm, ZOWE=416/66 mmhg, SpO2=98.0 %, Resp=10 B/min 14:45:26 The LV was injected at 10 cc/sec for a total of 30. OMNIPAQUE, 300 MG, 50ML 50ML used. Recorded Pressure: LV, HR=58, Condition=Condition 1 14:45:57 (Left Ventricle) LV 113/2/13 Recorded Pressure: LV, Ao, HR=57, Condition=Condition 1 14:46:06 (Left Ventricle) LV 107/7/11, (Aorta) Ao 109/53/77 14:46:41 Catheter was removed A JL 4.0 INFINITI CATHETER FR 5 was advanced over a wire. OMNIPAQUE, 350 MG, 150ML 150ML was us ed for 14:46:43 injections. 14:47:49 HR=60 bpm, KMLU=647/60 mmhg, SpO2=97.0 %, Resp=11 B/min 14:47:55 The LCA was injected and visualized at various angles. OMNIPAQUE, 350 MG, 150ML 150ML used . 14:50:31 Catheter was removed A AR MOD INFINITI CATHETER FR 5 was advanced over a wire. OMNIPAQUE, 350 MG, 150ML 150ML was us ed for 14:50:33 injections. 14:50:47 HR=54 bpm, RHKT=970/66 mmhg, SpO2=97.0 %, Resp=11 B/min 14:53:09 The RCA was injected and visualized at various angles. OMNIPAQUE, 350 MG, 150ML 150ML used . 14:53:45 Catheter was removed 14:53:49 HR=69 bpm, CRBZ=190/69 mmhg, SpO2=98.0 %, Resp=10 B/min 6000 units HEPARIN given in lab by Zoe Carmona RN in Right Antecubital via Peripheral IV. Ordered by Sawyer, 14:55:45 Sary. A SHEATH, FR6.5 PRELUDE 11CM FR 6.5 was exchanged in the Fem Art (right). This was necessary in order to 14:56:01 accomodate a larger catheter. 14:56:47 HR=67 bpm, LNDR=185/79 mmhg, SpO2=98.0 %, Resp=17 B/min 14:58:09 A XBLAD 3.5 SH GUIDE CATHETER FR 6 was advanced over a wire. contrast was used for injectio ns. 14:59:52 HR=69 bpm, AJRJ=206/74 mmhg, SpO2=98.0 %, Resp=20 B/min 15:00:23 The LCA was injected and visualized at various angles. OMNIPAQUE, 350 MG, 150ML 150ML used . 15:01:43 100 mcg NTG (IC) given in lab by Sary Jacques via Intra-coronary. Ordered by Damian Jacques. 15:02:00 Activated Clotting Time Drawn 15:02:52 HR=66 bpm, VGYP=796/73 mmhg, SpO2=97.0 %, Resp=21 B/min 15:03:35 A WIRE, BALANCE MIDDLEWEIGHT 190CM (KIRBY) 190CM was inserted via Fem Art (right). 15:05:47 Wire removed 15:05:48 HR=67 bpm, SFRQ=633/78 mmhg, SpO2=99.0 %, Resp=18 B/min 15:05:55 Catheter was removed A JL 4.0 SH GUIDE CATHETER FR 6 was advanced over a wire. OMNIPAQUE, 350 MG, 150ML 150ML was us ed for 15:07:14 injections. 15:09:23 HR=62 bpm, ETWU=551/79 mmhg, SpO2=99.0 %, Resp=17 B/min 15:11:18 1 mg VERSED given in lab by Zoe Carmona RN in Right Antecubital via Peripheral IV. Ord ered by Sary Jacques. 15:11:53 HR=61 bpm, INEV=375/75 mmhg, SpO2=99.0 %, Resp=19 B/min 25 mcg FENTANYL given in lab by Zoe Carmona RN in Right Antecubital via Peripheral IV. Ord ered by Sawyer, 15:12:28 Sary. 15:12:52 The LCA was injected and visualized at various angles. OMNIPAQUE, 350 MG, 150ML 150ML used . 15:14:01 A WIRE, BALANCE MIDDLEWEIGHT 190CM (KIRBY) 190CM was inserted via Fem Art (right). 15:14:38 1 mg VERSED given in lab by Zoe Carmona RN in Right Antecubital via Peripheral IV. Ord ered by Sary Jacques. 15:14:53 HR=59 bpm, KEOW=291/70 mmhg, SpO2=97.0 %, Resp=12 B/min 25 mcg FENTANYL given in lab by Zoe Carmona RN in Right Antecubital via Peripheral IV. Ord ered by Sawyer, 15:15:47 Sary. 15:15:57 ACT (Normal Range 90-180) = 256 A BALLOON, 2.0 8MM EMERGE MR 2.0 8MM was inserted over WIRE, BALANCE MIDDLEWEIGHT 190CM (KIRBY) 190CM 15:16:39 via the LAD Prox. 15:17:51 HR=56 bpm, HODY=305/64 mmhg, SpO2=96.0 %, Resp=10 B/min A BALLOON, 2.0 8MM EMERGE MR 2.0 8MM over a WIRE, BALANCE MIDDLEWEIGHT 190CM (KIRBY) 190CM in th e LAD 15:17:59 Prox was inflated using a 30 DONN INDEFLATOR at 14 donn for 20 sec. A BALLOON, 2.0 8MM EMERGE MR 2.0 8MM over a WIRE, BALANCE MIDDLEWEIGHT 190CM (KIRBY) 190CM in th e LAD 15:19:38 Prox was inflated using a 30 DONN INDEFLATOR at 14 donn for 10 sec. 15:20:49 HR=57 bpm, KPAW=952/65 mmhg, SpO2=95.0 %, Resp=10 B/min 15:22:16 Balloon Removed. 15:22:43 100 mcg NTG (IC) given in lab by Sary Jacques via Intra-coronary. Ordered by Damian Jacques. 15:23:52 HR=60 bpm, NIBP=97/54 mmhg, SpO2=96.0 %, Resp=10 B/min 15:26:48 HR=55 bpm, AHIC=630/64 mmhg, SpO2=95.0 %, Resp=10 B/min A STENT, 3.0 12MM SANDEEP 3.0 12MM was advanced through a JL 4.0 SH GUIDE CATHETER FR 6 over a WIR E, BALANCE 15:26:53 MIDDLEWEIGHT 190CM (KIRBY) 190CM. A STENT, 3.0 12MM SANDEEP 3.0 12MM was deployed using a 30 DONN INDEFLATOR at 12 atmospheres for 35 seconds in 15:27:21 the LAD Prox. 15:28:59 Delivery device removed 15:29:28 Wire removed 15:29:48 HR=58 bpm, LTMS=360/72 mmhg, SpO2=97.0 %, Resp=10 B/min 15:30:14 Catheter was removed 15:30:53 An injection in the Fem Art (right) was made through the SHEATH, FR6.5 PRELUDE 11CM FR 6.5. 15:32:52 HR=58 bpm, EPRV=691/69 mmhg, SpO2=97.0 %, Resp=14 B/min 15:33:11 ANGIOSEAL, FR6 VIP FR 6 placement in the Fem Art (right) 15:35:52 HR=65 bpm, QXBF=643/74 mmhg, SpO2=99.0 %, Resp=18 B/min 15:36:01 Case End 15:38:53 HR=60 bpm, SSID=954/79 mmhg, SpO2=98.0 %, Resp=12 B/min 15:38:54 Sterile dressing applied to site 15:38:57 No case complications noted. 15:38:58 Cine recording checked. 15:41:55 HR=65 bpm, FUOO=467/82 mmhg, SpO2=98.0 %, Resp=22 B/min 15:42:10 90 mg BRILINTA given in lab by Zoe Carmona, RN via Oral. Ordered by Sary Jacques. 15:42:18 Vitals capture stopped. 15:42:37 Patient moved to BED Assessment: Final Case, HR=58 BPM, Rhythm=SB, DJME=385/79 mmhg, Chest Pain=0 Right Pulses: [place]in Ped=2, Femoral=2 15:43:20 Left Pulses: [place] Ped=2, Femoral=2 Neurological: State=Alert, Ox3, MATHUR Respiration: Resp=14 B/min, SpO2=98 % 15:47:20 Patient transported to [facility] End Study - Contrast Media Used In Study Contrast Total Opened (mL) Total Used (mL) Total Wasted (mL) Omnipaque 140 140 0 End Study - Maximum Contrast Load Max Contrast Load (mL) 312.8 End Study - Radiation Exposure Fluoro Time (minutes) 8.9 End Study - Sheaths Sheaths Pulled By Sheath Hold Time (min) Sary Jacques End Study - Patient Disposition Complications Transferred To Interventional Outcome No Telemetry Bed successful
[2017-09-03] MEDS ORDERED: MISC INFORMATION XX ONE (16:00)
--- NOTE | 2017-09-03 16:48 | MR ---
cc: ELIANE BAI MD DATE 09/03/17 INDICATIONS Unstable angina, class III angina, coronary artery disease, history of LAD stenting. PROCEDURES PERFORMED 1. Retrograde heart catheterization with left ventriculography and selective coronary angiography 2. Angioplasty and stenting of proximal left anterior descending artery. 3. Moderate sedation ACCESS SITE Right femoral artery using ultrasound guidance. EQUIPMENT USED 5 [place]ian pigtail catheter 5 [place]ian JL-4 and AR modified coronary catheters. JL-4 guide with side holes, 2.0 balloon for predilatation, 3.0 x 12 mm Ronyx stent at 12 atmospheres. MEDICATIONS 1. Versed IV. 2. Fentanyl IV. 3. Heparin IV. 4. Nitroglycerin IC 5. Brilinta 90 mg p.o. CONTRAST Omnipaque 140 mL COMPLICATIONS None. BLOOD LOSS Less than 10 ml. METHOD OF HEMOSTASIS Angio-Seal closure. RESULTS A. HEMODYNAMICS Heart rate 60 beats per minute diastolic pressure 70 mmHg. Left ventricle 108/7, aorta 108/53/77. B. LEFT VENTRICULOGRAPHY Ejection fraction 35% wall motion anteroapical and apical hypokinesis, no mitral regurgitation C. CORONARY ANGIOGRAPHY Left main coronary patent. Left descending artery has 90% stenosis in the proximal portion and patent stent in the mid portion. V1 small patent. V2 moderate size, ____ ostial stenosis. Left circumflex artery has 30% stenosis in the mid portion. There is 80% stenosis at the ostium of the first marginal branch. OM2 is patent. Right coronary artery is a dominant vessel with 30% stenosis in the mid portion. PDA patent. PLV patent. The stenosis in the LAD was 8 mm long, ____ flow III post NILSON flow III post stenosis zero. Post intervention angiography revealed excellent patency of the stented segment, no evidence of dissection, thrombosis of his embolization. DIAGNOSES 1. Severe coronary artery disease with 90% stenosis of the proximal left anterior descending artery. 2. Ischemic cardiomyopathy with moderate left ventricular systolic function. 3. Successful angioplasty and stenting of the proximal left anterior descending artery DISPOSITION Mr. Castanon will be monitored on telemetry after his procedure with serial enzymes and EKGs. We will continue long-term therapy with Brilinta and aspirin. He also continue aggressive modification of his cardiac risk factors. He will follow up with Dr. Yao, his primary lead web developer, in his office after discharge. MD SWEETIE Velasco /3:49 PM /4:30 PM
[2017-09-03 20:20] LABS: BASOPHIL # 0.1 TH/MM3 (0-0.2); BASOPHIL % 0.9 % (0.0-2.0); EOSINOPHIL # 0.2 TH/MM3 (0-0.4); HEMATOCRIT 38.4 % (39.0-51.0); HEMO FLAGS DIFF FINAL; LYMPH % 16.8 % (9.0-44.0); LYMPHOCYTE # 1.1 TH/MM3 (1.0-4.8); MEAN CORPUSCULAR HEMOGLOBIN 31.7 PG (27.0-34.0); MEAN CORPUSCULAR HGB CONC 33.8 % (32.0-36.0); MONO % 6.9 % (0.0-8.0); NEUT % 72.4 % (16.0-70.0); PLATELET COUNT 165 TH/MM3 (150-450); RED BLOOD COUNT 4.09 MIL/MM3 (4.50-5.90); RED CELL DISTRIBUTION WIDTH 13.9 % (11.6-17.2); WHITE BLOOD COUNT 6.8 TH/MM3 (4.0-11.0)
[2017-09-03] MEDS ORDERED: ATORVASTATIN 10 MG TAB PO SCH (21:00)
[2017-09-03] MEDS: TICAGRELOR 90 MG TAB PO SCH (21:08)
[2017-09-03] MEDS: LISINOPRIL 5 MG TAB PO SCH (21:08)
[2017-09-04] VITALS (9 sets, daily range): BP systolic 106–136; BP diastolic 62–81; PULSE 50–78; RESP 18–20; TEMP 97–98; O2SAT 96–97
--- NOTE | 2017-09-04 05:59 | EKG ---
Date Performed: 09/03/2017 Time Performed: 16:24:38 PTAGE: 72 years EKG: Sinus bradycardia with 1st degree A-V block. Possible faulty V2 - omitted from analysis Lef tward axis Inferior infarct - age undetermined Abnormal ECG PREVIOUS TRACING : 09/02/2017 23.38 DOCTOR: Que Estevez Interpretating Date/Time 09/04/2017 05:55:51
[2017-09-04 07:04] LABS: BICARBONATE 23.2 MEQ/L (21.0-32.0); MAGNESIUM 2.1 MG/DL (1.5-2.5); POTASSIUM 4.4 MEQ/L (3.5-5.1)
[2017-09-04 07:06] LABS: HDL CHOLESTEROL 53.6 MG/DL (40.0-60.0)
[2017-09-04] MEDS: TICAGRELOR 90 MG TAB PO SCH (09:00)
[2017-09-04] MEDS ORDERED: ASPIRIN 81 MG CHEW TAB PO SCH (09:00)
[2017-09-04] MEDS: SODIUM CHLORIDE 0.9% FLUSH 10 ML FLUSH IV FLUSH SCH (09:00)
[2017-09-04] MEDS ORDERED: ATOR1TAB18 PO (10:30)
[2017-09-04] MEDS ORDERED: BRIL90TA PO (10:30)
--- NOTE | 2017-09-04 10:39 | HHI.PR ---
Subjective Remarks This is a pleasant 72 y/o Male with CAD status post PCI and stent placement x 2 , Hyperlipidemia, AAA repair, history of prostate cancer, who came to ER with Chest pain, dizziness and diaphoresis. Patient sees Dr. Yao. His last cardiac catheterization was in 2013. At that time he had 2 vessel disease with 60% occlusion of the LAD and 70% occlusion of the first obtuse marginal branch of the circumflex which was not amenable to stenting and patient was medically managed. 09/03: Seen by presentation specialist Doctor Sary Jacques and recommended to PCI will go at this moment, he is with his in the room. 09/04: Stable in his bedroom, status post Cardiac Catheterization, performed 06/13, with Diagnosis of Unstable angina Class III angina, Coronary artery disease and status post LAD stenting, Found with Severe Coronary artery disease with 90%, stenosis of the proximal left anterior descending artery, Ischemic Cardiomyopathy with Moderate Left ventricular Systolic function, Successful angioplasty and stenting of the proximal left anterior descending artery. recommended to continue Brilinta and Aspirin, Scripts given but there is not yet a written order by Doctor Jacques to discharge the patient a call placed to specialist for this discharge. follow Doctor Yao in his office next week. Objective Vital Signs Date Time Temp Pulse Resp B/P (MAP) Pulse Ox O2 Delivery O2 Flow Rate FiO2 09/04/17 08:35 97 21 09/04/17 06:00 58 09/04/17 05:00 52 09/04/17 04:00 55 09/04/17 03:00 97.0 55 18 106/62 (77) 96 09/04/17 03:00 53 09/04/17 02:00 50 09/04/17 01:00 52 09/04/17 00:00 52 09/03/17 23:49 97.8 59 16 111/66 (81) 95 09/03/17 23:48 58 09/03/17 22:00 68 09/03/17 21:00 57 09/03/17 20:10 56 09/03/17 19:36 97.7 64 16 114/64 (81) 97 09/03/17 19:36 57 09/03/17 18:00 56 09/03/17 17:00 58 09/03/17 16:00 98.0 57 16 127/77 (94) 98 09/03/17 16:00 57 09/03/17 13:00 54 09/03/17 12:00 51 09/03/17 12:00 98.4 51 18 98 09/03/17 11:00 52 I/O 09/03/17 09/03/17 09/03/17 09/04/17 09/04/17 09/04/17 07:00 15:00 23:00 07:00 15:00 23:00 Intake Total 120 ml 2100 ml 480 ml Output Total 800 ml Balance 120 ml 1300 ml 480 ml Intake Oral 120 ml 600 ml 480 ml IV Total 1500 ml Output Urine Total 800 ml # Voids 2 3 # Bowel Movements 0 Result Diagram: 09/03/17 1954 09/04/17 0521 Imaging Last Impressions Chest X-Ray 09/02/17 1137 Signed Impressions: Service Date/Time: Saturday, September 02, 2017 12:09 - CONCLUSION: No acute disease. Jorge Ferris MD Procedures 09/03/17, With Diagnosis of Unstable angina Class III angina, Coronary artery disease and status post LAD stenting, Found with Severe Coronary artery disease with 90%, stenosis of the proximal left anterior descending artery, Ischemic Cardiomyopathy with Moderate Left ventricular Systolic function, Successful angioplasty and stenting of the proximal left anterior descending artery. Other Results Laboratory Tests Test 09/02/17 11:30 09/03/17 02:23 09/03/17 19:54 09/04/17 05:21 Prothrombin Time 10.2 SEC Prothromb Time International Ratio 0.9 RATIO Activated Partial Thromboplast Time 26.6 SEC Blood Urea Nitrogen 23 MG/DL 19 MG/DL Creatinine 1.40 MG/DL 1.21 MG/DL Random Glucose 102 MG/DL 87 MG/DL Total Protein 7.3 GM/DL Albumin 3.8 GM/DL Calcium Level 9.1 MG/DL 8.4 MG/DL Magnesium Level 2.2 MG/DL 2.1 MG/DL Alkaline Phosphatase 72 U/L Aspartate Amino Transf (AST/SGOT) 18 U/L Alanine Aminotransferase (ALT/SGPT) 28 U/L Total Bilirubin 0.5 MG/DL Sodium Level 138 MEQ/L 140 MEQ/L Potassium Level 4.1 MEQ/L 4.4 MEQ/L Chloride Level 103 MEQ/L 108 MEQ/L Carbon Dioxide Level 26.9 MEQ/L 23.2 MEQ/L Troponin I LESS THAN 0.02 NG/ML Mean Corpuscular Volume 94.0 FL Mean Corpuscular Hemoglobin 31.7 PG Mean Corpuscular Hemoglobin Concent 33.8 % Red Cell Distribution Width 13.9 % Mean Platelet Volume 9.3 FL Neutrophils (%) (Auto) 72.4 % Lymphocytes (%) (Auto) 16.8 % Monocytes (%) (Auto) 6.9 % Eosinophils (%) (Auto) 3.0 % Basophils (%) (Auto) 0.9 % Neutrophils # (Auto) 5.0 TH/MM3 Lymphocytes # (Auto) 1.1 TH/MM3 Monocytes # (Auto) 0.5 TH/MM3 Eosinophils # (Auto) 0.2 TH/MM3 Basophils # (Auto) 0.1 TH/MM3 CBC Comment DIFF FINAL Anion Gap 9 MEQ/L Estimat Glomerular Filtration Rate 59 ML/MIN Total Creatine Kinase 51 U/L Triglycerides Level 93 MG/DL Cholesterol Level 206 MG/DL LDL Cholesterol 134 MG/DL HDL Cholesterol 53.6 MG/DL Cholesterol/HDL Ratio 3.84 RATIO Objective Remarks GENERAL: This is a well-nourished, well-developed patient, in no apparent distress. SKIN: No rashes, ecchymoses or lesions. Warm and dry. HEAD: Atraumatic. Normocephalic. EYES: No scleral icterus. No injection or drainage. ENT: Tongue dry. NECK: Trachea midline. No lymphadenopathy. CHEST: No reproducible chest wall tenderness. CARDIOVASCULAR: Regular rate and rhythm without murmurs, gallops, or rubs. RESPIRATORY: Clear to auscultation. Breath sounds equal bilaterally. No wheezes , rales, or rhonchi. GASTROINTESTINAL: Abdomen soft, non-tender, nondistended. No guarding. MUSCULOSKELETAL: No lower extremity edema or calf pain bilaterally. NEUROLOGICAL: Awake and alert. Motor grossly within normal limits. Five out of 5 muscle strength in bilateral arms and legs. Normal speech. PSYCHIATRIC: Normal mood and affect. Medications and IVs Current Medications Medications (Trade) Dose Ordered Sig/[place] Route Start Time Stop Time Status Last Admin (NS Flush) 2 ml UNSCH PRN IVF 09/02/17 11:45 (NS Flush) 2 ml UNSCH PRN IV FLUSH 09/02/17 15:15 (NS Flush) 2 ml BID IV FLUSH 09/02/17 21:00 09/03/17 21:09 (Tylenol) 500 mg Q4H PRN PO 09/02/17 15:15 (Morphine Inj) 2 mg Q4H PRN IV PUSH 09/02/17 15:15 (Zofran Inj) 4 mg Q6H PRN IV PUSH 09/02/17 15:15 (Pepcid) 20 mg BID PO 09/02/17 21:00 09/03/17 21:07 (Nitrostat Sl) 0.4 mg Q5M PRN SL 09/02/17 15:15 (Ecotrin Ec) 81 mg DAILY PO 09/03/17 09:00 09/03/17 09:54 (Coreg) 3.125 mg BID PO 09/02/17 21:00 09/03/17 21:08 (Vitamin B12) 250 mcg DAILY PO 09/03/17 09:00 09/03/17 09:53 (Brilinta) 60 mg BID PO 09/02/17 21:00 09/03/17 21:09 (Prinivil) 2.5 mg HS PO 09/02/17 21:00 09/03/17 21:08 (Theragran) 1 tab DAILY PO 09/03/17 09:00 09/03/17 09:54 Sodium Chloride 1,000 ml @ 75 mls/hr [id number] IV 09/02/17 21:30 09/02/17 21:33 (Aspirin Chew) 81 mg DAILY PO 09/04/17 09:00 (Brilinta) 90 mg BID PO 09/03/17 21:00 09/03/17 21:08 (Lipitor) 80 mg HS PO 09/03/17 21:00 A/P Assessment and Plan Unstable angina: Patient with history of coronary artery disease. Chest pain for the past 2 weeks across the middle of the chest intermittently sometimes radiating to the back. Today with chest heaviness, dizziness, diaphoresis, shortness of breath, pain similar to prior [place]. EKG personally interpreted with sinus rhythm. T-wave inversion in V3. Troponin less than 0.02. Chest x-ray personally interpreted and normal. Patient received 325 mg of aspirin in the ED. -Patient has known coronary artery lesions that were unable to be stented in 2013. ED physician has spoken with Dr. Jacques, covering yeast pusher, who requests patient be transferred to the [facility] for evaluation. -Serial EKGs and enzymes every 6 hours -Patient has no active chest pain, but will order nitroglycerin SL and morphine as needed. If pain does return and is persistent, can apply scheduled nitroglycerin ointment instead. -Will continue home Brilinta and 81 mg aspirin daily -09/03/17, with Diagnosis of Unstable angina Class III angina, Coronary artery disease and status post LAD stenting, Found with Severe Coronary artery disease with 90%, stenosis of the proximal left anterior descending artery, Ischemic Cardiomyopathy with Moderate Left ventricular Systolic function, Successful angioplasty and stenting of the proximal left anterior descending artery. recommended to continue Brilinta and Aspirin, Scripts given but there is not yet a written order by Doctor Sary Jacques to discharge the patient a call placed to specialist for this discharge. follow Doctor Yao in his office next week. Renal insufficiency: Creatinine 1.21 GFR 59 ml per min. CAD: Continue Brilinta, carvedilol, lisinopril. BP stable. HLD: Needs to be on high intensity statin management started on Atorvastatin 80 mg daily. DVT prophylaxis: SCDs. Discharge Planning Once cleared by presentation specialist. Nathaniel Sy MD Sep 04, 2017 10:39
[2017-09-04] MEDS: CYANOCOBALAMIN 100 MCG TAB PO SCH (11:02)
[2017-09-04] MEDS: TICAGRELOR 60 MG TAB PO SCH (11:03)
[2017-09-04] MEDS: MULTIVITAMIN TAB PO SCH (11:03)
[2017-09-04] MEDS: ASPIRIN EC 81 MG TABEC PO SCH (11:03)
[2017-09-04] MEDS: FAMOTIDINE 20 MG TAB PO SCH (11:08)
[2017-09-04] MEDS: CARVEDILOL 3.125 MG TAB PO SCH (11:09)
--- NOTE | 2017-09-04 11:57 | PD.CARD.PN ---
Subjective Subjective Remarks No CP or SOB, feels well Objective Medications Administered Medications Medications (Trade) Dose Ordered Sig/[place] Route PRN Reason Start Time Stop Time Status Last Admin Dose Admin Sodium Chloride (NS Flush) 2 ml BID IV FLUSH 09/02/17 21:00 09/04/17 09:00 Famotidine (Pepcid) 20 mg BID PO 09/02/17 21:00 09/04/17 11:08 Aspirin (Ecotrin Ec) 81 mg DAILY PO 09/03/17 09:00 09/04/17 11:03 Carvedilol (Coreg) 3.125 mg BID PO 09/02/17 21:00 09/04/17 11:09 Cyanocobalamin (Vitamin B12) 250 mcg DAILY PO 09/03/17 09:00 09/04/17 11:02 Ticagrelor (Brilinta) 60 mg BID PO 09/02/17 21:00 09/04/17 11:03 Lisinopril (Prinivil) 2.5 mg HS PO 09/02/17 21:00 09/03/17 21:08 Multivitamins (Theragran) 1 tab DAILY PO 09/03/17 09:00 09/04/17 11:03 Sodium Chloride 1,000 ml @ 75 mls/hr [id number] IV 09/02/17 21:30 09/02/17 21:33 Ticagrelor (Brilinta) 90 mg BID PO 09/03/17 21:00 09/03/17 21:08 Vital Signs / I&O Vital Signs Date Time Temp Pulse Resp B/P (MAP) Pulse Ox O2 Delivery O2 Flow Rate FiO2 09/04/17 08:35 97 21 09/04/17 06:00 58 09/04/17 05:00 52 09/04/17 04:00 55 09/04/17 03:00 97.0 55 18 106/62 (77) 96 09/04/17 03:00 53 09/04/17 02:00 50 09/04/17 01:00 52 09/04/17 00:00 52 09/03/17 23:49 97.8 59 16 111/66 (81) 95 09/03/17 23:48 58 09/03/17 22:00 68 09/03/17 21:00 57 09/03/17 20:10 56 09/03/17 19:36 97.7 64 16 114/64 (81) 97 09/03/17 19:36 57 09/03/17 18:00 56 09/03/17 17:00 58 09/03/17 16:00 98.0 57 16 127/77 (94) 98 09/03/17 16:00 57 09/03/17 13:00 54 09/03/17 12:00 51 09/03/17 12:00 98.4 51 18 98 I/O 09/03/17 09/03/17 09/03/17 09/04/17 09/04/17 09/04/17 07:00 15:00 23:00 07:00 15:00 23:00 Intake Total 120 ml 2100 ml 480 ml Output Total 800 ml Balance 120 ml 1300 ml 480 ml Intake Oral 120 ml 600 ml 480 ml IV Total 1500 ml Output Urine Total 800 ml # Voids 2 3 # Bowel Movements 0 Physical Exam GENERAL: In NAD. SKIN: Warm and dry. HEAD: Normocephalic. EYES: No scleral icterus. No injection or drainage. NECK: Supple, trachea midline. No JVD or lymphadenopathy. CARDIOVASCULAR: Regular rate and rhythm without murmurs, gallops, or rubs. RESPIRATORY: Breath sounds equal bilaterally. No accessory muscle use. GASTROINTESTINAL: Abdomen soft, non-tender, nondistended. MUSCULOSKELETAL: No cyanosis, or edema. Groin stable. Laboratory Laboratory Tests Test 09/03/17 19:54 09/04/17 05:21 White Blood Count 6.8 TH/MM3 Red Blood Count 4.09 MIL/MM3 Hemoglobin 13.0 GM/DL Hematocrit 38.4 % Mean Corpuscular Volume 94.0 FL Mean Corpuscular Hemoglobin 31.7 PG Mean Corpuscular Hemoglobin Concent 33.8 % Red Cell Distribution Width 13.9 % Platelet Count 165 TH/MM3 Mean Platelet Volume 9.3 FL Neutrophils (%) (Auto) 72.4 % Lymphocytes (%) (Auto) 16.8 % Monocytes (%) (Auto) 6.9 % Eosinophils (%) (Auto) 3.0 % Basophils (%) (Auto) 0.9 % Neutrophils # (Auto) 5.0 TH/MM3 Lymphocytes # (Auto) 1.1 TH/MM3 Monocytes # (Auto) 0.5 TH/MM3 Eosinophils # (Auto) 0.2 TH/MM3 Basophils # (Auto) 0.1 TH/MM3 CBC Comment DIFF FINAL Differential Comment Blood Urea Nitrogen 19 MG/DL Creatinine 1.21 MG/DL Random Glucose 87 MG/DL Calcium Level 8.4 MG/DL Magnesium Level 2.1 MG/DL Sodium Level 140 MEQ/L Potassium Level 4.4 MEQ/L Chloride Level 108 MEQ/L Carbon Dioxide Level 23.2 MEQ/L Anion Gap 9 MEQ/L Estimat Glomerular Filtration Rate 59 ML/MIN Total Creatine Kinase 51 U/L Triglycerides Level 93 MG/DL Cholesterol Level 206 MG/DL LDL Cholesterol 134 MG/DL HDL Cholesterol 53.6 MG/DL Cholesterol/HDL Ratio 3.84 RATIO Assessment and Plan Problem List: (1) Unstable angina ICD Codes: I20.0 - Unstable angina (2) Coronary artery disease ICD Codes: I25.10 - Coronary artery disease Status: Acute (3) History of coronary artery stent placement ICD Codes: Z95.5 - History of coronary artery stent placement Status: Acute (4) History of AAA (abdominal aortic aneurysm) repair ICD Codes: Z98.89 - History of AAA (abdominal aortic aneurysm) repair Status: Acute (5) Renal insufficiency ICD Codes: N28.9 - Renal insufficiency Status: Acute Assessment and Plan Stable post LAD stenting using IRENE. Continue Brilinta 90 mg BID and baby ASA for at least 1 year. Continue beta john, statin. DC home. F/u w Dr. Yao. Sary Jacques MD Sep 04, 2017 11:57
--- NOTE | 2017-09-04 12:21 | HHI.DS ---
Discharge Summary Admission Date Sep 02, 2017 at 14:15 Discharge Date: Sep 04, 2017 Admitting Diagnosis Acute Coronary Syndrome (1) Unstable angina ICD Code: I20.0 - Unstable angina Diagnosis: Principal (2) Renal insufficiency ICD Code: N28.9 - Renal insufficiency Diagnosis: Principal Status: Acute (3) History of coronary artery stent placement ICD Code: Z95.5 - History of coronary artery stent placement Diagnosis: Principal Status: Acute (4) S/P cardiac cath ICD Code: Z98.890 - Other specified postprocedural states Diagnosis: Principal Procedures 09/03/17, with Diagnosis of Unstable angina Class III angina, Coronary artery disease and status post LAD stenting, Found with Severe Coronary artery disease with 90%, stenosis of the proximal left anterior descending artery, Ischemic Cardiomyopathy with Moderate Left ventricular Systolic function, Successful angioplasty and stenting of the proximal left anterior descending artery. recommended to continue Brilinta and Aspirin for one year. Brief History - From Admission 72-year-old male with history of coronary artery disease with stents x 2, hyperlipidemia, AAA repair, and h/o prostate cancer presents with complaint of chest pain. The patient states that he started to have pain described as "heaviness" at 10:30 to 11 AM this morning across the middle of his chest. He states initially was a 7-8/10 and lasted for approximately half an hour then started to diminish at 11 AM and he said intermittently pain since. He states it decreased to 2/10 and now he is chest pain-free. He states he has been having chest pain in the same location for the past 2 weeks intermittently with some radiation to the back. Denies association with exertion. He states this morning he did have dizziness and diaphoresis. He states it felt similar to his [place] in 1997 although at that time he had nausea and vomiting which she did not have today. He has had some periodic mild shortness of breath. He denies any numbness or tingling in extremities and denies any pain to jaws/neck/arms. Denies any headache, lightheadedness, or visual changes. Denies any leg swelling. He denies any fevers or chills, recent cold symptoms, abdominal pain, diarrhea, constipation. Patient sees Dr. Yao. His last cardiac catheterization was in 2013. At that time he had 2 vessel disease with 60% occlusion of the LAD and 70% occlusion of the first obtuse marginal branch of the circumflex which was not amenable to stenting and patient was medically managed. CBC/BMP: 09/03/17195309/04/17 0521 Significant Findings Laboratory Tests Test 09/02/17 11:30 09/02/17 17:33 09/03/17 02:23 09/03/17 19:54 Monocytes (%) (Auto) 9.5 % (0.0-8.0) Blood Urea Nitrogen 23 MG/DL (7-18) 25 MG/DL (7-18) Creatinine 1.40 MG/DL (0.60-1.30) 1.31 MG/DL (0.60-1.30) Estimat Glomerular Filtration Rate 50 ML/MIN (>89) 54 ML/MIN (>89) Troponin I LESS THAN 0.02 NG/ML LESS THAN 0.02 NG/ML LESS THAN 0.02 NG/ML Random Glucose 111 MG/DL (74-106) Calcium Level 8.2 MG/DL (8.5-10.1) Chloride Level 110 MEQ/L (98-107) Total Creatine Kinase 37 U/L (39-308) Triglycerides Level 202 MG/DL (42-150) LDL Cholesterol 106 MG/DL (0-99) Red Blood Count 4.09 MIL/MM3 (4.50-5.90) Hematocrit 38.4 % (39.0-51.0) Neutrophils (%) (Auto) 72.4 % (16.0-70.0) Test 09/04/17 05:21 Blood Urea Nitrogen 19 MG/DL (7-18) Calcium Level 8.4 MG/DL (8.5-10.1) Chloride Level 108 MEQ/L (98-107) Estimat Glomerular Filtration Rate 59 ML/MIN (>89) Cholesterol Level 206 MG/DL (120-200) LDL Cholesterol 134 MG/DL (0-99) Imaging Last Impressions Chest X-Ray 09/02/17 7337 Signed Impressions: Service Date/Time: Saturday, September 02, 2017 12:09 - CONCLUSION: No acute disease. Jorge Ferris MD PE at Discharge GENERAL: This is a well-nourished, well-developed patient, in no apparent distress. SKIN: No rashes, ecchymoses or lesions. Warm and dry. HEAD: Atraumatic. Normocephalic. EYES: No scleral icterus. No injection or drainage. ENT: Tongue dry. NECK: Trachea midline. No lymphadenopathy. CHEST: No reproducible chest wall tenderness. CARDIOVASCULAR: Regular rate and rhythm without murmurs, gallops, or rubs. RESPIRATORY: Clear to auscultation. Breath sounds equal bilaterally. No wheezes , rales, or rhonchi. GASTROINTESTINAL: Abdomen soft, non-tender, nondistended. No guarding. MUSCULOSKELETAL: No lower extremity edema or calf pain bilaterally. NEUROLOGICAL: Awake and alert. Motor grossly within normal limits. Five out of 5 muscle strength in bilateral arms and legs. Normal speech. PSYCHIATRIC: Normal mood and affect. Hospital Course This is a pleasant 72 y/o Male with CAD status post PCI and stent placement x 2 , Hyperlipidemia, AAA repair, history of prostate cancer, who came to ER with Chest pain, dizziness and diaphoresis. Patient sees Dr. Yao. His last cardiac catheterization was in 2013. At that time he had 2 vessel disease with 60% occlusion of the LAD and 70% occlusion of the first obtuse marginal branch of the circumflex which was not amenable to stenting and patient was medically managed. 09/03: Seen by family centered specialist Doctor Sary Jacques and recommended to PCI will go at this moment, he is with his in the room. 09/04: Stable in his bedroom, status post Cardiac Catheterization, performed 06/13, with Diagnosis of Unstable angina Class III angina, Coronary artery disease and status post LAD stenting, Found with Severe Coronary artery disease with 90%, stenosis of the proximal left anterior descending artery, Ischemic Cardiomyopathy with Moderate Left ventricular Systolic function, Successful angioplasty and stenting of the proximal left anterior descending artery. recommended to continue Brilinta and Aspirin, Scripts given but there is not yet a written order by Doctor Jacques to discharge the patient a call placed to specialist for this discharge. follow Doctor Yao in his office next week. Assessment and Plan Unstable angina: Patient with history of coronary artery disease. Chest pain for the past 2 weeks across the middle of the chest intermittently sometimes radiating to the back. Today with chest heaviness, dizziness, diaphoresis, shortness of breath, pain similar to prior [place]. EKG personally interpreted with sinus rhythm. T-wave inversion in V3. Troponin less than 0.02. Chest x-ray personally interpreted and normal. Patient received 325 mg of aspirin in the ED. -Patient has known coronary artery lesions that were unable to be stented in 2013. ED physician has spoken with Dr. Jacques, covering joinery machinist, who requests patient be transferred to the main for evaluation. -Serial EKGs and enzymes every 6 hours -Patient has no active chest pain, but will order nitroglycerin SL and morphine as needed. If pain does return and is persistent, can apply scheduled nitroglycerin ointment instead. -Will continue home Brilinta and 81 mg aspirin daily -09/03/17, with Diagnosis of Unstable angina Class III angina, Coronary artery disease and status post LAD stenting, Found with Severe Coronary artery disease with 90%, stenosis of the proximal left anterior descending artery, Ischemic Cardiomyopathy with Moderate Left ventricular Systolic function, Successful angioplasty and stenting of the proximal left anterior descending artery. recommended to continue Brilinta and Aspirin, Scripts given but there is not yet a written order by Doctor Sary Jacques to discharge the patient a call placed to specialist for this discharge. follow Doctor Yao in his office next week. Renal insufficiency: Creatinine 1.21 GFR 59 ml per min. CAD: Continue Brilinta, carvedilol, lisinopril. BP stable. HLD: Needs to be on high intensity statin management started on Atorvastatin 80 mg daily. DVT prophylaxis: SCDs. Discharge Planning AT THIS TIME CLEARED TO GO HOME BY DIETARY [employer]NSH[employer]. Pt Condition on Discharge: Good Discharge Disposition: Discharge Home Discharge Time: <= 30 minutes Discharge Instructions DIET: Follow Instructions for: Heart Healthy Diet Activities you can perform: Regular-No Restrictions Nathaniel Sy MD Sep 04, 2017 12:21
--- NOTE | 2017-09-05 12:36 | EKG ---
Date Performed: 09/04/2017 Time Performed: 06:51:34 PTAGE: 72 years EKG: Sinus bradycardia Possible anterior infarct - age undetermined Lateral ST-T changes may be due to myocardial ischemia Low QRS voltages in precordial leads Abnormal ECG Compared to prior tracin g no significant change PREVIOUS TRACING : 09/03/2017 16.24 DOCTOR: Calixto Guevara Interpretating Date/Time 09/05/2017 12:30:22
== END 2017-09-04 12:22 | disposition home or self-care (01) ==
LOC: PHED 11:24 → PHEDA 14:15 → UNDOADMOB 14:15 → PHEDA 20:13 → HCIN 20:13 → UNDODISOB 09-04 12:22
PROVIDERS: ADMIT Internal Medicine; ATTEND Internal Medicine
DX: I25.110 Atherosclerotic heart disease of native coronary artery with unstable angina pectoris (principal); I12.9 Hypertensive chronic kidney disease with stage 1 through stage 4 chronic kidney disease, or unspecified chronic kidney disease; I25.5 Ischemic cardiomyopathy; N18.3 Chronic kidney disease, stage 3 (moderate); E78.5 Hyperlipidemia, unspecified; I25.2 Old myocardial infarction; Z85.46 Personal history of malignant neoplasm of prostate; Z92.3 Personal history of irradiation; Z95.5 Presence of coronary angioplasty implant and graft; Z87.891 Personal history of nicotine dependence
CPT/HCPCS: 71010; 80048; 80053; 80061; 82550; 83735; 84484; 85002; 85025; 85610; 85730; 92928; 93005; 93458; 96360; 96361; 99285; C1725; C1760; C1769; C1874; C1887; C1893; G0269; G0378; J1644; J2250; J3010; J7030; J7040; 99281; Q9967